=== PATIENT | female | born 1945 | race Caucasian/White ===

== ENCOUNTER 2017-05-24 11:50 | Emergency (ER) | payer OTHER ==
[~2017-05-24] VITALS: Ht 172.7 cm; Wt 65.0 kg
[2017-05-24 11:59] VITALS: Ht 172.7 cm; Wt 65.0 kg
[2017-05-24] MEDS ORDERED: HYDROCODONE/APAP (10/325) TAB PO ONE (12:30)
--- NOTE | 2017-05-24 13:38 | RADRPT ---
PROCEDURE: CT lumbar spine without contrast. CLINICAL INDICATION: Low back pain TECHNIQUE: CT of the lumbar spine without contrast was performed on a multidetector CT scanner, wi th multiplanar reformats. One or more of the following dose reduction techniques were used: Automat ed exposure control, adjustment in mA and / or kV according to patient size, use of iterative recons tructive technique. CTDIvol = 20 mGy and DLP = 598 mGy-cm. COMPARISON: None available. FINDINGS: No fracture or dislocation is identified. There is preservation of the lordosis of the lumbar spine . There is mild levoconvex lumbar scoliosis. There is grade 1 anterolisthesis at L4-5 without assoc iated spondylolysis. The vertebral bodies are maintained in height. There are multilevel anterior osteophytes. There is disc space narrowing, moderate to severe at L3-4 with vacuum disc changes at t his level and also at L2-3. T12-L1: No significant disc bulge or herniation, central canal stenosis or foraminal narrowing is id entified. L1-L2: There is mild posterior disc bulging and facet arthropathy without significant central canal stenosis identified. There is mild right foraminal narrowing. L2-L3: There is posterior disc bulging, and mild moderate facet arthropathy, greater on the right wi th mild central canal stenosis identified.. There is mild right foraminal narrowing. L3-L4: There is posterior disc bulging and mild facet arthropathy with ligamentum flavum hypertrophy . There is overall severe central canal stenosis. There is moderate to severe right, moderate left foraminal narrowing. L4-L5: There is posterior disc bulging and severe facet arthropathy with ligamentum flavum hypertrop hy. There is overall severe central canal stenosis. There is mild - moderate bilateral foraminal na rrowing. L5-S1: There is posterior disc bulging. There is mild - moderate facet arthropathy. No significant c entral canal stenosis is identified. There is mild - moderate left foraminal narrowing. IMPRESSION: 1. No fracture/dislocation identified. 2. Lumbar spondylosis/degenerative enthesopathy as described above, with grade 1 anterolisthesis at L4-5. 3. Mild levoconvex lumbar scoliosis. 4. Overall severe central canal stenosis at L3-4, L4-5, and mild central canal stenosis at L2-3. 5. Multilevel foraminal narrowing detailed above. RPTAT: VV .Albert Doran MD, Date Time Electronically viewed and signed by .Albert Doran MD, on 05/24/2017 13:38 .O/
[2017-05-24] MEDS ORDERED: METH750T93 PO (14:31)
[2017-05-24] MEDS ORDERED: HYDR-906 PO (14:31)
--- NOTE | 2017-05-24 14:36 | ERD ---
ER Documentation Chief Complaint Date/Time DATE: 05/24/17 TIME: 14:33 Chief Complaint NON TRAUMATIC BACK PAIN. HPI This 72-year-old who sent from [place] for [place] pain. The patient states she has had back pain for "a long long time". The pain is located in the right lower lumbar region. The patient states she resides in a detention and walks with assistance. She says she is not sure why she is here. She says she does not have any symptoms at all right now. She says she only has right back pain if she moves. He has no pain at rest no numbness in the legs no weakness in the legs no loss of bowel or bladder. Denies any trauma. ROS All systems reviewed and are negative except as per history of present illness. Medications Home Meds Active Scripts Hydrocodone/Acetaminophen ([place] 5-325 Tablet) 1 Each Tablet, 1 TAB PO Q6H Y for PAIN, #20 TAB Prov:DARIANA LEMOS DO 05/24/17 Methocarbamol* (Robaxin*) 750 Mg Tablet, 750 MG PO TID, #14 TAB Prov:DARIANA LEMOS DO 05/24/17 Allergies Allergies: Coded Allergies: aspirin (Verified Allergy, Mild, 05/24/17) PMhx/Soc Medical and Surgical Hx: pt denies Medical Hx, pt denies Surgical Hx Hx Miscellaneous Medical Probl: Yes (PT DENIES ANY MED HX) Hx Alcohol Use: No Hx Substance Use: No Hx Tobacco Use: No Smoking Status: Never smoker FmHx Family History: No coronary disease Physical Exam Vitals Vital Signs Date Time Temp Pulse Resp B/P Pulse Ox O2 Delivery O2 Flow Rate FiO2 05/24/17 11:59 98.3 83 18 118/69 99 Physical Exam Const: Well-developed, well-nourished Head: Atraumatic, normocephalic Eyes: Normal Conjunctiva, PERRLA, EOMI, normal sclera, no nystagmus ENT: Normal External Ears, Nose and Mouth, moist mucus membranes. Neck: Full range of motion. No meningismus, no lymphadenopathy. Resp: Clear to auscultation bilaterally, no wheezing, rhonchi, rales Cardio: Regular rate and rhythm, no murmurs, S1 S2 present Abd: Soft, non tender x 4, non distended. Normal bowel sounds, no guarding or rebound, no pulsitile abdominal masses or bruits Skin: No petechiae or rashes, no ecchymosis , no maculopapular rash Back: Right lower lumbar tenderness to palpation is worse with range of motion there is muscle spasm in the right paraspinous musculature Ext: No cyanosis, or edema, FROM x 4, normal inspection, neurovascularly intact x 4 Neur: Awake and alert, STR 5/5 x 4, sensation intact x 4, no focal findings, cerebellum intact Psych: Normal Mood and Affect Results 24 hrs Current Medications Medications (Trade) Dose Ordered Sig/Karen Route PRN Reason Start Time Stop Time Status Last Admin Dose Admin Acetaminophen/ Hydrocodone Bitart ([place] (10/325)) 1 tab ONCE ONCE PO 05/24/17 12:30 05/24/17 12:31 DC Procedures/MDM PROCEDURE: CT lumbar spine without contrast. CLINICAL INDICATION: Low back pain TECHNIQUE: CT of the lumbar spine without contrast was performed on a multidetector CT scanner, with multiplanar reformats. One or more of the following dose reduction techniques were used: Automated exposure control, adjustment in mA and / or kV according to patient size, use of iterative reconstructive technique. CTDIvol = 20 mGy and DLP = 598 mGy-cm. COMPARISON: None available. FINDINGS: No fracture or dislocation is identified. There is preservation of the lordosis of the lumbar spine. There is mild levoconvex lumbar scoliosis. There is grade 1 anterolisthesis at L4-5 without associated spondylolysis. The vertebral bodies are maintained in height. There are multilevel anterior osteophytes. There is disc space narrowing, moderate to severe at L3-4 with vacuum disc changes at this level and also at L2-3. T12-L1: No significant disc bulge or herniation, central canal stenosis or foraminal narrowing is identified. L1-L2: There is mild posterior disc bulging and facet arthropathy without significant central canal stenosis identified. There is mild right foraminal narrowing. L2-L3: There is posterior disc bulging, and mild moderate facet arthropathy, greater on the right with mild central canal stenosis identified.. There is mild right foraminal narrowing. L3-L4: There is posterior disc bulging and mild facet arthropathy with ligamentum flavum hypertrophy. There is overall severe central canal stenosis. There is moderate to severe right, moderate left foraminal narrowing. L4-L5: There is posterior disc bulging and severe facet arthropathy with ligamentum flavum hypertrophy. There is overall severe central canal stenosis. There is mild - moderate bilateral foraminal narrowing. L5-S1: There is posterior disc bulging. There is mild - moderate facet arthropathy. No significant central canal stenosis is identified. There is mild - moderate left foraminal narrowing. IMPRESSION: 1. No fracture/dislocation identified. 2. Lumbar spondylosis/degenerative enthesopathy as described above, with grade 1 anterolisthesis at L4-5. 3. Mild levoconvex lumbar scoliosis. 4. Overall severe central canal stenosis at L3-4, L4-5, and mild central canal stenosis at L2-3. 5. Multilevel foraminal narrowing detailed above. RPTAT: VV .Albert Doran MD, Date Time Electronically viewed and signed by .Albert Doran MD, on 05/24/2017 13:38 .O/ CC: DARIANA LEMOS DO Patient has some severe stenosis likely resulting in her back pain. Will print a copy of her CT scan and discharge her home with some Robaxin and [place] for pain. She will need to follow-up with Orth O/neurosurgery Departure Diagnosis: Primary Impression: Back pain Back pain location: low back pain Chronicity: chronic Back pain laterality : right Sciatica presence: without sciatica Qualified Code: M54.5 - Chronic right-sided low back pain without sciatica Condition: Stable Patient Instructions: Back Pain (Acute Or Chronic) Referrals: DOCTOR,NOT ON STAFF (PCP) DARIANA LEMOS DO May 24, 2017 14:36
[2017-05-24 16:42] VITALS: BP 162/84; PULSE 84; RESP 16; TEMP 98.3
== END 2017-05-24 16:43 | disposition home or self-care (01) ==
LOC: E/R 11:50
DX: M54.5 Low back pain (principal)
CPT/HCPCS: 72131